=== PATIENT | female | born 1975 | race Caucasian/White ===

== ENCOUNTER 2020-08-17 14:34 | Inpatient (IN) | payer OTHER ==
[2020-08-17] MEDS ORDERED: LIDOCAINE 0.5% (PF) 5 MG/ML (50 ML SDV) SQ PRN (15:47)
[2020-08-17] MEDS ORDERED: METHYLERGONOVINE 0.2 MG/ML 1 ML AMP IM PRN (15:47)
[2020-08-17] MEDS ORDERED: CARBOPROST TROMETHAMINE 250 MCG/ML 1 ML AMP IM PRN (15:47)
[2020-08-17] MEDS ORDERED: TERBUTALINE 1 MG/ML VIAL SQ PRN (15:47)
[2020-08-17] MEDS ORDERED: OXYTOCIN 10 UNIT/ML 1 ML VIAL IM PRN (15:47)
[2020-08-17] MEDS ORDERED: AMPICILLIN 2,000 MG in SODIUM CHLORIDE 0.9% 100 ML IVPB STA (15:59)
[2020-08-17] MEDS ORDERED: OXYTOCIN 30 UNITS/500 ML NS 30 UNIT in SALINE 1 500ML.BAG IV SCH (16:00)
[2020-08-17] MEDS: LACTATED RINGERS 1,000 ML IV SCH (16:00)
[2020-08-17 16:13] LABS: Basophils % (A) 0 %; Eosinophils # (A) 0.1 k/uL (0-0.7); Eosinophils % (A) 1 %; HCT 41.1 % (34.0-46.0); Lymphocytes # (A) 1.2 k/uL (1.0-4.8); Lymphocytes % (A) 11 %; MCH 26.2 pg (25.0-35.0); MCHC 31.8 g/dL (31.0-37.0); MCV 82.6 fL (80.0-100.0); Monocytes # (A) 0.5 k/uL (0-1.0); Monocytes % (A) 5 %; Neutrophils # (A) 9.1 k/uL (1.3-7.7); Neutrophils % (A) 81 %; Platelet Count 256 k/uL (150-450); RBC 4.97 m/uL (3.80-5.40); RDW 14.4 % (11.5-15.5); WBC 11.3 k/uL (3.8-10.6)
[2020-08-17] MEDS ORDERED: ROPIVACAINE 100 MG, fentaNYL (PF) 200 MCG in SODIUM CHLORIDE 0.9% 76 ML EPIDURAL ONE (19:48)
[2020-08-17] MEDS: AMPICILLIN 1,000 MG in SODIUM CHLORIDE 0.9% 50 ML IVPB SCH (20:40)
[2020-08-18] MEDS: AMPICILLIN 1,000 MG in SODIUM CHLORIDE 0.9% 50 ML IVPB SCH (00:41)
[2020-08-18] MEDS: LACTATED RINGERS 1,000 ML IV SCH (01:59)
[2020-08-18] MEDS ORDERED: HYDROCORTISONE 2.5% RECTAL CREAM 30 GM TUBE RECTAL PRN (02:25)
[2020-08-18] MEDS ORDERED: diphenhydrAMINE 50 MG CAP PO PRN (02:25)
[2020-08-18] MEDS ORDERED: SIMETHICONE 80 MG CHEWABLE PO PRN (02:25)
[2020-08-18] MEDS ORDERED: diphenhydrAMINE 25 MG CAP PO PRN (02:25)
[2020-08-18] MEDS ORDERED: LANOLIN CREAM 5 GM TUBE TOPICAL PRN (02:25)
[2020-08-18] MEDS ORDERED: ZOLPIDEM 5 MG TAB PO PRN (02:25)
[2020-08-18] MEDS ORDERED: ACETAMINOPHEN TAB 325 MG TAB PO PRN (02:25)
[2020-08-18] MEDS ORDERED: HYDROcodone/APAP 5-325MG 1 EACH TAB PO PRN (02:25)
[2020-08-18] MEDS ORDERED: BENZOCAINE/MENTHOL SPRAY 1 GM/SPRAY AEROSOL TOPICAL PRN (02:25)
[2020-08-18] MEDS ORDERED: diphenhydrAMINE 50 MG/ML 1 ML VIAL IVP PRN ×2 (02:25)
--- NOTE | 2020-08-18 02:28 | P.HPOB ---
History of Present Illness H&P Date: 08/18/20 Chief Complaint: Intrauterine at 36 weeks: PPROM Patient is a 44-year-old at 36 weeks 2 days gestation arrives following spontaneous rupture membranes at approximately 12:00 noon. She relates that she had 3 brief leaks and then she has not had a significant amount since that time. However, she came to labor and delivery and was noted to be amateur positive. With her history of group B strep we'll admit her and provide GBS prophylaxis. We'll plan Pitocin augmentation of labor as we moved forward and completion of rupture membranes as I can still feel membranes once antibiotics were infused. All questions are answered for her at this time. She is planning to use epidural for analgesia. Her Precis course has been, complicated by advanced maternal age for which she is been followed closely she is also noted to have bilateral renal dilation which will be evaluated as well. She did see maternal medicine and a echo was also performed. No other problems or issues are noted. Pertinent labs could O+ blood type, Rh and it was negative, rubella is immune, hepatitis B surface antigen and RPR were negative with GBS again B+. Past Medical History Past Medical History: No Reported History History of Any Multi-Drug Resistant Organisms: None Reported Past Surgical History: No Surgical Hx Reported Past Anesthesia/Blood Transfusion Reactions: No Reported Reaction Past Psychological History: No Psychological Hx Reported Smoking Status: Never smoker Past Alcohol Use History: None Reported Past Drug Use History: None Reported - Past Family History Mother Sister(s) Family Medical History: Cancer Additional Family Medical History / Comment(s): cervical cancer Medications and Allergies Home Medications Medication Instructions Recorded Confirmed Type Aspirin EC [Ecotrin] 81 mg PO DAILY 07/11/16 08/17/20 History Multivitamins, Thera [Multivitamin] 1 tab PO DAILY 07/11/16 08/17/20 History Allergies Allergy/AdvReac Type Severity Reaction Status Date / Time No Known Allergies Allergy Verified 08/17/20 14:51 Exam Osteopathic Statement: *. No significant issues noted on an osteopathic structu ral exam other than those noted in the History and Physical/Consult. Vital Signs Temp Pulse Resp BP Pulse Ox 08/17/20 18:38 96.9 F L 93 18 128/77 08/17/20 15:58 96.9 F L 93 18 128/77 98 Intake and Output 08/17/20 08/17/20 08/18/20 14:59 22:59 06:59 Output Total 300 Balance -300 Output: Urine 300 Other: Weight 98.883 kg 98.883 kg - OBG Physical Exam Breast: both: normal (no masses) Abdomen: bowel sounds normal, no diffuse tenderness, no bruit present, no guarding noted, no hepatomegaly, no splenomegaly, no mass Vulva: both: normal Vagina: normal moisture, no discharge Cervix: no lesion, no discharge Uterus: normal size, normal contour Adnexa: both: normal Anus/Rectum: normal perianal skin, no rectal mass, no hemorrhoids, heme negative Results Result Diagrams: 08/17/20 16:00 Abnormal Lab Results - Last 24 Hours (Table) 08/17/20 Range/Units 16:00 WBC 11.3 H (3.8-10.6) k/uL Neutrophils # 9.1 H (1.3-7.7) k/uL
[2020-08-18] MEDS ORDERED: OXYTOCIN 20 UNITS/1000 ML NS 1,000 ML IV SCH (02:30)
--- NOTE | 2020-08-18 02:30 | P.PROBDLV ---
Vaginal Delivery Note - . Vaginal Delivery Note: Patient progressed complete and pushed with spontaneous vaginal delivery of a viable male over a second degree midline laceration. Baby was delivered from straight occiput posterior position. Once baby's head was delivered anterior posterior shoulders were easily delivered with the reduction of a nuchal cord 2. Mouth nares were then bulb suctioned and baby was placed on mother's abdomen where the umbilical cord was clamped and cut in usual fashion an nursery personnel was present to assume care. The cord was allowed to pulsate for 45 seconds prior to clamping and cutting. Placenta was then delivered intact Pitocin was added to the IV. Second-degree midline laceration was then repaired with 3-0 Vicryl following 1% Xylocaine for analgesia. Is also noted that she had a small cut just on the right side of the normal laceration it was bleeding what appeared to be arterial with pumping noted therefore interrupted 3-0 Vicryl was placed to obtain excellent hemostasis over this area. scores were 8 and 9 at one and 5 minutes respectively and the weight was 7 lbs. 4 oz. Both mother and baby are stable following delivery.
[2020-08-18] MEDS: SENNOSIDES-DOCUSATE SODIUM 1 EACH TAB PO SCH ×2 (12:27→21:43)
[2020-08-18] MEDS: IBUPROFEN 600 MG TAB PO PRN (13:22)
[2020-08-19] MEDS: IBUPROFEN 600 MG TAB PO PRN ×3 (01:53→16:12)
[2020-08-19 06:56] LABS: Basophils % (A) 0 %; Eosinophils # (A) 0.2 k/uL (0-0.7); Eosinophils % (A) 3 %; HCT 33.9 % (34.0-46.0); HGB 10.9 gm/dL (11.4-16.0); Lymphocytes # (A) 1.3 k/uL (1.0-4.8); Lymphocytes % (A) 15 %; MCH 26.6 pg (25.0-35.0); MCHC 32.2 g/dL (31.0-37.0); MCV 82.6 fL (80.0-100.0); Mean Platelet Volume 8.6; Monocytes # (A) 0.4 k/uL (0-1.0); Monocytes % (A) 5 %; Neutrophils # (A) 6.2 k/uL (1.3-7.7); Neutrophils % (A) 75 %; Platelet Count 209 k/uL (150-450); RDW 14.4 % (11.5-15.5); WBC 8.3 k/uL (3.8-10.6)
[2020-08-19] MEDS: SENNOSIDES-DOCUSATE SODIUM 1 EACH TAB PO SCH (09:31)
--- NOTE | 2020-08-19 12:50 | P.PNOBGVD ---
Subjective - Subjective Principal diagnosis: S/P NVD PPD #1 Interval history: Pt seen and examined. Denies nausea, vomiting, chest pain, shortness of breath or any calf pain. Patient reports: Reports appetite normal [place]: doing well (Being treated for jaundice) Objective - Latest Vital Signs Latest vital signs: Vital Signs Temp Pulse Resp BP Pulse Ox 08/19/20 08:00 97.9 F 76 18 128/81 98 08/19/20 00:00 98.1 F 83 16 135/82 95 08/18/20 16:00 97.7 F 76 16 115/80 97 Intake and Output 08/18/20 08/19/20 08/19/20 22:59 06:59 14:59 Other: # Voids 1 - Exam Lungs: bilateral: normal Chest: Normal S1, Normal S2 Extremities: Present: normal Abdomen: Present: normal appearance, soft Uterus: Present: normal, firm - Labs Labs: Abnormal Lab Results - Last 24 Hours (Table) 08/19/20 Range/Units 06:15 Hgb 10.9 L (11.4-16.0) gm/dL Hct 33.9 L (34.0-46.0) % Assessment and Plan (1) Status post normal vaginal delivery Current Visit: Yes Status: Acute Code(s): [id number] - SNOMED Code(s): 109325969 Plan: 1. Continue care
--- NOTE | 2020-08-19 13:04 | P.MSEPDOC ---
Presenting Problems - Arrival Data Date of Arrival on Unit: 08/17/20 Time of Arrival on Unit: 15:36 Mode of Transport: Ambulatory - Complaint OB-Reason for Admission/Chief Complaint: Rule Out PROM Comment: pt presents to triage for possible SROM around 1200 today, clear fluid Medical History - Information : 9 Para: 3 Term: 2 : 1 Abortions: Spontaneous or Elective: 5 Number of Living Children: 3 - Gestational Age Gestational Age by GODWIN (wks/days): 36 Weeks and 4 Days - History Complications: GBS+, Prior Review of Systems - Review of Systems Constitutional: No problems Breast: No problems ENT: No problems Cardiovascular: No problems Respiratory: No problems Gastrointestinal: No problems Genitourinary: No problems Musculoskeletal: No problems Neurological: No problems Skin: No problems Vital Signs - Temperature Temperature: 97.9 F Temperature Source: Temporal Artery Scan - Pulse Right Brachial Pulse Rate: 76 Pulse Assessment Method: Auscultation - Respirations Respiratory Rate: 18 Oxygen Delivery Method: Room Air O2 Sat by Pulse Oximetry: 98 - Blood Pressure Right Arm Blood Pressure: 128/81 Blood Pressure Mean: 96 Blood Pressure Source: Automatic Cuff Medical Screen Scoring (Pre) - Cervical Exam Dilation: 4-7 cm = 2 Effacement: More than 50% = 2 Membranes: Ruptured = 3 - Uterine Contractions Frequency: > or = 36 weeks =2 Duration: > 40 seconds = 2 Intensity: N/A - Maternal Vital Signs Maternal Temperature: N/A Maternal Blood Pressure: N/A Signs of Preeclampsia: N/A Maternal Respirations: N/A - Maternal Trauma Maternal Trauma: N/A - Assessment - Baby A Baseline FHR: 130 Heart Rate - NICHD Category: Category I (Normal) = 0 NST: Reactive Position: N/A Station: N/A - Total Score - Baby A Total Score - Baby A: 11 - Total Score - Baby B Total Score - Baby B: 11 - Total Score - Baby C Total Score - Baby C: 11 - Level of Risk - Baby A Level of Risk - Baby A: High (10+) - Level of Risk - Baby B Level of Risk - Baby B: High (10+) - Level of Risk - Baby C Level of Risk - Baby C: High (10+) Physician Notification (Pre) - Physician Notified Physician Notified Date: 08/17/20 Physician Notified Time: 15:36 New Order Received: Yes - Notification Comment Comment: admit pt for PROM, amniosure positive, tx with abx for gbs + Disposition - Disposition OB Disposition: Admit, LDRP Suite I agree with the RN Medical Screening Exam: Yes Risk & Benefit of care provided described in d/c instruction: Yes Diagnosis: ENCOUNTER FOR FULL-TERM UNCOMPLICATED DELIVERY
[2020-08-20] MEDS: IBUPROFEN 600 MG TAB PO PRN ×3 (00:17→13:47)
[2020-08-20] MEDS: SENNOSIDES-DOCUSATE SODIUM 1 EACH TAB PO SCH ×3 (00:18→21:43)
[2020-08-20 08:54] VITALS: TEMP 97.9
--- NOTE | 2020-08-20 09:44 | P.DS ---
Providers Date of admission: 08/17/20 15:41 Expected date of discharge: 08/20/20 Attending physician: Lisa Silva Primary care physician: Stated None - Discharge Diagnosis(es) (1) Status post normal vaginal delivery Current Visit: Yes Status: Acute Hospital Course: Patient presented at 35 weeks with spontaneous rupture membranes. She underwent normal vaginal delivery. course was uncomplicated. The baby has jaundice and been treated with phototherapy. She will be discharged home day #2 in stable condition to follow-up with me in 6 weeks. She denies nausea, vomiting, chest pain, shortness of breath or any calf pain. Her lochia is minimal as well as her pain. Plan - Discharge Summary New Discharge Prescriptions: New Ibuprofen [Motrin] 600 mg PO Q6HR PRN #30 tab PRN Reason: Mild Pain Or Fever >= 100.5 No Action Aspirin EC [Ecotrin] 81 mg PO DAILY Multivitamins, Thera [Multivitamin] 1 tab PO DAILY Discharge Medication List Aspirin EC [Ecotrin] 81 mg PO DAILY 07/11/16 [History] Multivitamins, Thera [Multivitamin] 1 tab PO DAILY 07/11/16 [History] Ibuprofen [Motrin] 600 mg PO Q6HR PRN #30 tab 08/20/20 [Rx] Follow up Appointment(s)/Referral(s): Lisa Silva DO [Doctor of Osteopathic Medicine] - 6 Weeks Discharge Disposition: HOME SELF-CARE
[2020-08-20 14:04] VITALS: BP 117/81; PULSE 76; RESP 18
== END 2020-08-20 20:10 | disposition home or self-care (01) | DRG 807 ==
LOC: FBPOP 14:34 → 4FBP 15:41
PROVIDERS: ADMIT Obstetrics & Gynecology; ATTEND Obstetrics & Gynecology
PROC: 00HU33Z Insertion of Infusion Device into Spinal Canal, Percutaneous Approach (ICD-10-PCS; principal; 2020-08-18)
PROC: 0KQM0ZZ Repair Perineum Muscle, Open Approach (ICD-10-PCS; principal; 2020-08-18)
PROC: 10E0XZZ Delivery of Products of Conception, External Approach (ICD-10-PCS; principal; 2020-08-18)
PROC: 3E0R3NZ Introduction of Analgesics, Hypnotics, Sedatives into Spinal Canal, Percutaneous Approach (ICD-10-PCS; principal; 2020-08-18)
DX: O42.913 Preterm premature rupture of membranes, unspecified as to length of time between rupture and onset of labor, third trimester (principal); Z37.0 Single live birth; O69.81X0 Labor and delivery complicated by cord around neck, without compression, not applicable or unspecified; O70.1 Second degree perineal laceration during delivery; Z3A.36 36 weeks gestation of pregnancy; Z79.82 Long term (current) use of aspirin; Z80.49 Family history of malignant neoplasm of other genital organs; O99.824 Streptococcus B carrier state complicating childbirth; Z37.1 Single stillbirth
CPT/HCPCS: 59025; 84112; 85025; 86850; 86900; 86901; 88307; 99213

== ENCOUNTER 2020-08-24 20:43 | Inpatient (IN) | payer OTHER ==
[2020-08-24] MEDS ORDERED: SODIUM CHLORIDE 0.9% 1,000 ML IV STA (22:26)
[2020-08-24] MEDS ORDERED: MAGNESIUM SULFATE-WATER PMX 4 GM in WATER FOR INJECTION 1 100ML.BAG IVPB STA (23:02)
[2020-08-24] MEDS ORDERED: hydrALAZINE HCL 20 MG/ML 1 ML VIAL IVP STA (23:02)
[2020-08-24 23:10] LABS: Appearance,Urine Clear (Clear); Bacteria,Urine Rare /hpf; Basophils # (A) 0.1 k/uL (0-0.2); Basophils % (A) 1 %; Bilirubin,Urine Negative (Negative); Blood,Urine Large (Negative); Color,Urine Yellow; Eosinophils # (A) 0.2 k/uL (0-0.7); Eosinophils % (A) 3 %; Glucose,Urine (UA) Negative (Negative); HGB 11.9 gm/dL (11.4-16.0); Ketones,Urine Negative (Negative); Leukocyte Esterase,Urine Small (Negative); Lymphocytes # (A) 1.3 k/uL (1.0-4.8); Lymphocytes % (A) 20 %; MCH 26.4 pg (25.0-35.0); MCHC 32.2 g/dL (31.0-37.0); MCV 81.8 fL (80.0-100.0); Mean Platelet Volume 8.5; Monocytes # (A) 0.4 k/uL (0-1.0); Monocytes % (A) 6 %; Mucus,Urine Rare /hpf; Neutrophils # (A) 4.5 k/uL (1.3-7.7); Neutrophils % (A) 69 %; Nitrite,Urine Negative (Negative); PH, Urine 6.5 (5.0-8.0); Platelet Count 258 k/uL (150-450); Protein,Urine Negative (Negative); RBC 4.52 m/uL (3.80-5.40); RBC,Urine 62 /hpf (0-5); RDW 14.2 % (11.5-15.5); Specific Gravity,Urine 1.013 (1.001-1.035); Squamous Epithelial Cell,Urine 1 /hpf (0-4); Urobilinogen,Urine <2.0 mg/dL (<2.0); WBC 6.6 k/uL (3.8-10.6); WBC,Urine 11 /hpf (0-5)
[2020-08-24 23:22] LABS: ALT 23 U/L (4-34); AST 24 U/L (14-36); African American GFR (CKD) >90 (>60 ml/min/1.73 sqM); Albumin 3.4 g/dL (3.5-5.0); Alkaline Phosphatase 123 U/L (38-126); Anion Gap 5 mmol/L; Blood Urea Nitrogen 14 mg/dL (7-17); Carbon Dioxide 24 mmol/L (22-30); Chloride 110 mmol/L (98-107); Glucose 93 mg/dL (74-99); LDH 610 U/L (313-618); Non-African American GFR(CKD) >90 (>60 ml/min/1.73 sqM); Potassium 4.5 mmol/L (3.5-5.1); Sodium 139 mmol/L (137-145); Total Bilirubin 0.3 mg/dL (0.2-1.3); Total Protein 6.4 g/dL (6.3-8.2)
--- NOTE | 2020-08-25 00:30 | XR ---
EXAMINATION TYPE: XR chest 2V DATE OF EXAM: 08/25/2020 COMPARISON: NONE HISTORY: Vertebra TECHNIQUE: 2 views FINDINGS: There is no heart failure nor confluent pneumonic infiltrate. Costophrenic angles are clear . Bony thorax is intact. There are chest leads. IMPRESSION: No active cardiopulmonary disease.
[2020-08-25] MEDS ORDERED: NALOXONE 0.4 MG/ML 1 ML VIAL IV PRN (00:34)
[2020-08-25] MEDS ORDERED: hydrALAZINE HCL 20 MG/ML 1 ML VIAL IVP PRN (00:36)
--- NOTE | 2020-08-25 00:38 | ED ---
General Adult HPI - General Chief complaint: Extremity Problem,Nontraumatic Stated complaint: Bilateral Leg Swelling Time Seen by Provider: 08/24/20 21:23 Source: patient Mode of arrival: ambulatory Limitations: no limitations - History of Present Illness Initial comments: 44-year-old female patient who is 4 days after having vaginal delivery presents to the emergency department today for evaluation of lower extremity edema and shortness of breath. Patient denies any cough or congestion. States she feels a light pressure on her chest and that she cannot get air deep in her lungs. She denies any headache, blurred vision, double vision, or dizziness. Denies any nausea or vomiting. She denies calf pain or redness. Denies having any difficulty with blood pressures during her . States she is otherwise healthy. Denies any abnormal vaginal discharge or bleeding. Denies any significant abdominal pain. Patient denies any recent rash, diarrhea, constipation, back pain, numbness, tingling, weakness, hematuria, dysuria, urinary urgency, urinary frequency, or any other complaints. - Related Data Home Medications Medication Instructions Recorded Confirmed Aspirin EC [Ecotrin] 81 mg PO DAILY 07/11/16 08/17/20 Multivitamins, Thera [Multivitamin] 1 tab PO DAILY 07/11/16 08/17/20 Previous Rx's Medication Instructions Recorded Ibuprofen [Motrin] 600 mg PO Q6HR PRN #30 tab 08/20/20 Allergies Allergy/AdvReac Type Severity Reaction Status Date / Time No Known Allergies Allergy Verified 08/24/20 21:03 Review of Systems ROS Statement: Those systems with pertinent positive or pertinent negative responses have been documented in the HPI. ROS Other: All systems not noted in ROS Statement are negative. Past Medical History Past Medical History: No Reported History History of Any Multi-Drug Resistant Organisms: None Reported Past Surgical History: No Surgical Hx Reported Past Anesthesia/Blood Transfusion Reactions: No Reported Reaction Past Psychological History: No Psychological Hx Reported Smoking Status: Never smoker Past Alcohol Use History: None Reported Past Drug Use History: None Reported - Past Family History Mother Sister(s) Family Medical History: Cancer Additional Family Medical History / Comment(s): cervical cancer General Exam Limitations: no limitations General appearance: alert, in no apparent distress, other (This is a well- developed, well-nourished adult female patient in no acute distress. Vital signs upon presentation are temperature 98.2F, pulse 93, respirations 18, blood pressure 158/99, pulse ox 96% on room air) Eye exam: Present: normal appearance, PERRL, EOMI. Absent: scleral icterus, conjunctival injection, nystagmus, periorbital swelling ENT exam: Present: normal exam, normal oropharynx, mucous membranes moist Respiratory exam: Present: normal lung sounds bilaterally. Absent: respiratory distress, wheezes, rales, rhonchi, stridor Cardiovascular Exam: Present: regular rate, normal rhythm, normal heart sounds. Absent: systolic murmur, diastolic murmur, rubs, gallop, clicks GI/Abdominal exam: Present: soft, normal bowel sounds. Absent: distended, tenderness, guarding, rebound, rigid Neurological exam: Present: alert, oriented X3, CN II-XII intact Psychiatric exam: Present: normal affect, normal mood Skin exam: Present: warm, dry, intact, normal color. Absent: rash Course Vital Signs 08/24/20 08/24/20 08/24/20 21:01 23:15 23:30 Temperature 98.2 F Pulse Rate 93 71 Respiratory 18 18 Rate Blood Pressure 158/99 144/86 135/80 O2 Sat by Pulse 96 96 Oximetry 08/24/20 08/25/20 23:45 00:30 Temperature Pulse Rate 77 79 Respiratory 18 19 Rate Blood Pressure 138/83 135/83 O2 Sat by Pulse 96 95 Oximetry EKG Findings - EKG Comments: EKG Findings:: EKG obtained at 2249 shows normal sinus rhythm with a ventricular rate is 72, ID interval 132, QRS duration 80, QT 394, QTC 431. No evidence of ST elevation or depression. Medical Decision Making - Medical Decision Making 44-year-old female patient who is 4 days after a pontine he has vaginal delivery at 36 weeks and 4 days, presents to the emergency department today for evaluation of lower extremity edema and shortness of breath. Physical examination did reveal nonpitting generalized edema to the lower legs and feet. Neurovascular status is intact. Lungs are clear to auscultation with good air movement. EKG was obtained and showed normal sinus rhythm. We did initiate preeclampsia protocol and obtained labs, EKG, and blood pressure monitoring. Patient's blood pressures did increase into the 160s over 90s, discussed the case with my attending, we did order magnesium and hydralazine. Patient did receive magnesium and IV fluids. Hydralazine was held due to improvement in blood pressures. I discussed the case with the patient's OBGYN Dr. Silva. She recommended chest xray to rule out pulmonary edema and admission to the L&D unit. CXR showed no acute process, but review of the images was concerning for mild pulmonary edema. Patient's O2 saturations are ranging between 95-96% on room air. Patient will be transferred to the L&D unit, further magnesium will be held to prevent worsening of the edema. Hydralazine is ordered PRN. Patient is agreeable with this plan. - Lab Data Result diagrams: 08/24/20 22:57 08/24/20 22:57 Lab Results 08/24/20 08/24/20 08/24/20 Range/Units 22:57 22:57 22:57 WBC 6.6 (3.8-10.6) k/uL RBC 4.52 (3.80-5.40) m/uL Hgb 11.9 (11.4-16.0) gm/dL Hct 37.0 (34.0-46.0) % MCV 81.8 (80.0-100.0) fL MCH 26.4 (25.0-35.0) pg MCHC 32.2 (31.0-37.0) g/dL RDW 14.2 (11.5-15.5) % Plt Count 258 (150-450) k/uL Neutrophils % 69 % Lymphocytes % 20 % Monocytes % 6 % Eosinophils % 3 % Basophils % 1 % Neutrophils # 4.5 (1.3-7.7) k/uL Lymphocytes # 1.3 (1.0-4.8) k/uL Monocytes # 0.4 (0-1.0) k/uL Eosinophils # 0.2 (0-0.7) k/uL Basophils # 0.1 (0-0.2) k/uL Sodium 139 (137-145) mmol/L Potassium 4.5 (3.5-5.1) mmol/L Chloride 110 H (98-107) mmol/L Carbon Dioxide 24 (22-30) mmol/L Anion Gap 5 mmol/L BUN 14 (7-17) mg/dL Creatinine 0.75 (0.52-1.04) mg/dL Est GFR (CKD-EPI)AfAm >90 (>60 ml/min/1.73 sqM) Est GFR (CKD-EPI)NonAf >90 (>60 ml/min/1.73 sqM) Glucose 93 (74-99) mg/dL Uric Acid 4.0 (3.7-7.4) mg/dL Calcium 10.0 (8.4-10.2) mg/dL Total Bilirubin 0.3 (0.2-1.3) mg/dL AST 24 (14-36) U/L ALT 23 (4-34) U/L Alkaline Phosphatase 123 (38-126) U/L Lactate Dehydrogenase 610 (313-618) U/L Total Protein 6.4 (6.3-8.2) g/dL Albumin 3.4 L (3.5-5.0) g/dL Urine Color Yellow Urine Appearance Clear (Clear) Urine pH 6.5 (5.0-8.0) Ur Specific [place] 1.013 (1.001-1.035) Urine Protein Negative (Negative) Urine Glucose (UA) Negative (Negative) Urine Ketones Negative (Negative) Urine Blood Large H (Negative) Urine Nitrite Negative (Negative) Urine Bilirubin Negative (Negative) Urine Urobilinogen <2.0 (<2.0) mg/dL Ur Leukocyte Esterase Small H (Negative) Urine RBC 62 H (0-5) /hpf Urine WBC 11 H (0-5) /hpf Ur Squamous Epith Cells 1 (0-4) /hpf Urine Bacteria Rare H (None) /hpf Urine Mucus Rare H (None) /hpf - Radiology Data Radiology results: report reviewed, image reviewed Two-view x-ray of the chest is obtained. Report reviewed in its entirety. Impression by Dr. Skinner shows no active cardiopulmonary disease. Disposition Clinical Impression: Preeclampsia, Lower extremity edema, Shortness of breath Disposition: ADMITTED IP TO THIS [facility] Condition: Serious Referrals: None,Stated [Primary Care Provider] - 1-2 days Decision to Admit Reason: Admit from EC Decision Date: 08/25/20 Decision Time: 00:38
[2020-08-25] MEDS ORDERED: CALCIUM GLUCONATE 1 GM/10 ML VIAL IV PRN (02:07)
[2020-08-25] MEDS: MAGNESIUM SULFATE-WATER PMX 20 GM in WATER FOR INJECTION 1 500ML.BAG IV SCH ×3 (02:25→23:12)
[2020-08-25] MEDS ORDERED: IBUPROFEN 600 MG TAB PO STA (09:12)
--- NOTE | 2020-08-25 09:33 | P.HPOB ---
History of Present Illness H&P Date: 08/25/20 Chief Complaint: Bilateral lower extremity edema 44-year-old status post normal vaginal delivery day #7 presented to the emergency room complaining of bilateral lower extremity edema. She also has some mild shortness of breath and back discomfort from her epidural site. Upon presentation to the hospital her blood pressures were quite elevated up to 160/100. Chest x-ray shows some mild pulmonary edema. Preeclamptic labs were negative. This patient has never had a problem with blood pressure during her or previous to that. Considering her new onset of hypertension, I believe this is preeclampsia and will prophylactically treat with magnesium sulfate for seizures. Magnesium sulfate does increase her risk of pulmonary edema but with frequent and regular monitoring, I believe a safe and necessary to continue the magnesium sulfate. Review of Systems All systems: negative Constitutional: Denies chills, Denies fever Eyes: denies blurred vision, denies pain Ears, nose, mouth and throat: Denies headache, Denies sore throat Cardiovascular: Denies chest pain, Denies shortness of breath Respiratory: Denies cough Gastrointestinal: Denies abdominal pain, Denies diarrhea, Denies nausea, Denies vomiting Genitourinary: Denies dysuria, Denies hematuria Musculoskeletal: Denies myalgias Integumentary: Denies pruritus, Denies rash Neurological: Denies numbness, Denies weakness Psychiatric: Denies anxiety, Denies depression Endocrine: Denies fatigue, Denies weight change Past Medical History Past Medical History: No Reported History Additional Past Medical History / Comment(s): 4 previous vaginal deliveries, her last delivery was 7 days ago over 36 week baby. History of Any Multi-Drug Resistant Organisms: None Reported Past Surgical History: No Surgical Hx Reported Past Anesthesia/Blood Transfusion Reactions: No Reported Reaction Past Psychological History: No Psychological Hx Reported Smoking Status: Never smoker Past Alcohol Use History: None Reported Past Drug Use History: None Reported - Past Family History Mother Sister(s) Family Medical History: Cancer Additional Family Medical History / Comment(s): cervical cancer Medications and Allergies Home Medications Medication Instructions Recorded Confirmed Type No Known Home Medications 08/25/20 08/25/20 History Allergies Allergy/AdvReac Type Severity Reaction Status Date / Time No Known Allergies Allergy Verified 08/24/20 21:03 Exam Osteopathic Statement: *. No significant issues noted on an osteopathic structural exam other than those noted in the History and Physical/Consult. Vital Signs Temp Pulse Pulse Resp BP BP Pulse Ox 08/25/20 08:30 76 16 125/72 96 08/25/20 07:30 96.8 F L 71 18 128/79 96 08/25/20 06:00 74 16 119/62 94 L 08/25/20 05:15 72 16 120/67 94 L 08/25/20 03:28 68 16 132/78 100 08/25/20 02:58 93 16 136/69 95 08/25/20 02:29 97.8 F 78 16 132/78 98 08/25/20 01:21 97.7 F 08/25/20 01:15 80 18 134/87 96 08/25/20 00:30 79 19 135/83 95 08/24/20 23:45 77 18 138/83 96 08/24/20 23:30 135/80 08/24/20 23:15 71 18 144/86 96 08/24/20 21:01 98.2 F 93 18 158/99 96 Intake and Output 08/24/20 08/25/20 08/25/20 22:59 06:59 14:59 Intake Total 225 Output Total 800 1300 Balance -800 -1075 Intake: Intake, IV Titration 100 Amount Magnesium Sulfate-Water 100 Pmx 20 gm In Water For Injection 1 500ml.bag @ 2 GM/HR 50 mls/hr IV .Q10H [facility] Rx#:[id number] Oral 125 Output: Urine 800 1300 Other: Weight 98.883 kg 98.883 kg Heart: Regular rate and rhythm Lungs: Clear to auscultation bilaterally Abdomen: Soft, nontender Extremities: Negative Homans sign, 2+/4 DTR 2+ bilateral lower extremity edema Results Result Diagrams: 08/24/20 22:57 08/24/20 22:57 Abnormal Lab Results - Last 24 Hours (Table) 08/24/20 08/24/20 Range/Units 22:57 22:57 Chloride 110 H (98-107) mmol/L Albumin 3.4 L (3.5-5.0) g/dL Urine Blood Large H (Negative) Ur Leukocyte Esterase Small H (Negative) Urine RBC 62 H (0-5) /hpf Urine WBC 11 H (0-5) /hpf Urine Bacteria Rare H (None) /hpf Urine Mucus Rare H (None) /hpf Microbiology - Last 24 Hours (Table) 08/24/20 22:57 Urine Culture - Preliminary Urine,Clean Catch Assessment and Plan (1) Preeclampsia in period Current Visit: Yes Status: Acute Code(s): O14.95 - UNSPECIFIED PRE- ECLAMPSIA, COMPLICATING THE PUERPERIUM SNOMED Code(s): 250612183 Plan: 1. We'll continue magnesium sulfate for 24 hours, which is around 11 PM tonight. 2. Monitor for increased shortness of breath, reflexes and blood pressures closely 3. NSAIDs for pain relief 4. Once the magnesium sulfate has been discontinued and will see what her blood pressures are and determine when patient can be discharged.
[2020-08-25] MEDS: IBUPROFEN 600 MG TAB PO PRN ×2 (16:06→22:18)
[2020-08-26 06:17] VITALS: RESP 16
[2020-08-26 07:21] LABS: Basophils % (A) 0 %; Eosinophils # (A) 0.2 k/uL (0-0.7); Eosinophils % (A) 3 %; HGB 12.2 gm/dL (11.4-16.0); Lymphocytes % (A) 16 %; MCH 26.8 pg (25.0-35.0); MCV 81.2 fL (80.0-100.0); Mean Platelet Volume 8.1; Monocytes # (A) 0.3 k/uL (0-1.0); Monocytes % (A) 5 %; Neutrophils # (A) 4.8 k/uL (1.3-7.7); Neutrophils % (A) 74 %; Platelet Count 278 k/uL (150-450); RBC 4.56 m/uL (3.80-5.40); RDW 14.1 % (11.5-15.5); WBC 6.5 k/uL (3.8-10.6)
[2020-08-26 07:30] LABS: ALT 20 U/L (4-34); AST 21 U/L (14-36); African American GFR (CKD) >90 (>60 ml/min/1.73 sqM); Albumin 3.2 g/dL (3.5-5.0); Alkaline Phosphatase 119 U/L (38-126); Anion Gap 5 mmol/L; Blood Urea Nitrogen 15 mg/dL (7-17); Calcium 7.3 mg/dL (8.4-10.2); Carbon Dioxide 27 mmol/L (22-30); Chloride 105 mmol/L (98-107); Glucose 105 mg/dL (74-99); Magnesium 3.4 mg/dL (1.6-2.3); Non-African American GFR(CKD) >90 (>60 ml/min/1.73 sqM); Potassium 4.4 mmol/L (3.5-5.1); Sodium 137 mmol/L (137-145); Total Bilirubin 0.3 mg/dL (0.2-1.3); Total Protein 6.3 g/dL (6.3-8.2)
--- NOTE | 2020-08-26 08:04 | P.DS ---
Providers Date of admission: 08/25/20 08:52 Expected date of discharge: 08/26/20 Attending physician: Lisa Silva Primary care physician: Stated None - Discharge Diagnosis(es) (1) Preeclampsia in period Current Visit: Yes Status: Acute Hospital Course: 44-year-old presented with preeclampsia 7 days after a normal vaginal delivery. Her blood pressures were 160s over 100. She had symptoms of some shortness of breath and leg swelling but no headache no vision changes no right or quadrant pain. She was placed on magnesium sulfate for 24 hours. She voided over 4000 mL a 12 hour period. The magnesium sulfate was discontinued 9 hours ago. 2 blood pressures since then have been 130s over 70s. She'll have a few more blood pressures before she goes home. If they remain stable she'll be discharged on no medication and will follow up with me in 1 week for blood pressure check. Signs and symptoms of preeclampsia were reviewed again. And she was advised to return to labor and delivery if symptoms arise. Patient Condition at Discharge: Serious Plan - Discharge Summary New Discharge Prescriptions: No Action No Known Home Medications Discharge Medication List No Known Home Medications 08/25/20 [History] Follow up Appointment(s)/Referral(s): None,Stated [Primary Care Provider] - 1-2 days Lisa Silva DO [Doctor of Osteopathic Medicine] - 1 Week (BP check) Discharge Disposition: HOME SELF-CARE
[2020-08-26] MEDS: IBUPROFEN 600 MG TAB PO PRN (09:04)
[2020-08-26 12:23] VITALS: BP 131/75; PULSE 75; TEMP 98.7
== END 2020-08-26 13:10 | disposition home or self-care (01) | DRG 776 ==
LOC: EC 20:43 → 4FBP 08-25 00:10 → OBSVTOIN 08-25 08:52
PROVIDERS: ADMIT Obstetrics & Gynecology; ATTEND Obstetrics & Gynecology
DX: O14.95 Unspecified pre-eclampsia, complicating the puerperium (principal); Z79.82 Long term (current) use of aspirin; Z80.49 Family history of malignant neoplasm of other genital organs
CPT/HCPCS: 36415; 71046; 80053; 81001; 83615; 83735; 84550; 85025; 87086; 93005; 96361; 96365; 99284